=== PATIENT | female | born 1995 ===

== ENCOUNTER 2020-12-27 07:01 | Outpatient (CLI) | payer OTHER ==
[~2020-12-27] VITALS: Ht 167.6 cm; Wt 127.6 kg
[~2020-12-27 07:01] MED LIST: DOSTINEX0.5 MG/TAB PO; SYNTHROID0.05 MG/TA PO
[2020-12-27 07:18] VITALS: BP 131/82; PULSE 82
[2020-12-27 08:15] VITALS: BP 104/64; PULSE 72
--- NOTE | 2020-12-27 08:15 | NUR ---
Transferred from Radiology by cart. Sahu to low back CD&I. VSS. Denies pain and needs at this time
[2020-12-27 08:30] VITALS: BP 115/72; PULSE 68
[2020-12-27 08:45] VITALS: BP 117/76; PULSE 63
[2020-12-27 08:56] LABS: GLUCOSE,CSF 60 mg/dL (40-70); TOTAL PROTEIN,CSF 25 mg/dL (15-45)
[2020-12-27 09:00] VITALS: BP 114/71; PULSE 73
--- NOTE | 2020-12-27 09:43 | NUR ---
VSS. Denies dizziness or headache when ambulating to bathroom. Discharge instructions given. Transferred to private car by
[2020-12-27 10:35] LABS: CSF APPEARANCE CLEAR; CSF COLOR COLORLESS; CSF POLYMORPHONUCLEAR 0 % (0-6); CSF RBC 12 /mm3 (0-0)
[2020-12-27 10:36] LABS: CSF MONONUCLEAR 100 % (70-100)
== END 2020-12-27 09:45 | disposition home or self-care (01) ==
LOC: COL.RAD 07:01
PROVIDERS: Psychiatry & Neurology Neurology
DX: H47.10 Unspecified papilledema (principal)